=== PATIENT | male | born 1950 | race Caucasian/White ===

== ENCOUNTER 2022-08-09 10:55 | Emergency (ER) | payer MEDICARE, MEDICAID, SELFPAY ==
[2022-08-09 10:56] VITALS: BP 140/106; PULSE 42; RESP 16; TEMP 36.9; O2SAT 96; BMI 22.8
--- NOTE | 2022-08-09 11:17 | HMH.EDSKAF ---
Discharge Plan Disposition Patient Disposition: Home, Self-Care Condition: Fair Prescriptions Prescriptions: New clobetasol 0.05 % cream 1 applic topical BID 7 Days Qty: 500 0RF Rx Instructions: 2 weeks Referrals Follow up/Referrals: Edita Brasher MD [Referring] - 7-14 days ProviderSharita MD [Primary Care Provider] - See instructions Activity Restrictions/Add. Instructions Additional Instructions/Restrictions: Do not take furosemide (lasix) until you see your doctor or the welfare worker again Clinical Impressions Clinical Impression: Bullous pemphigoid Instructions Patient Instructions: DI for Skin Abscess Print Language Print Language: Maltese Discharge ED Provider: Joshua Clements Skin/Abscess/FB HPI General Chief complaint: Skin/Abscess/Foreign Body Stated complaint: Possible Lesion LT leg Time Seen by Provider: 08/09/22 11:17 Mode of Arrival: Wheelchair Source of Information: Patient Limitations: No Limitations Description of Symptoms (Recalled from ER Triage Doc. by RN): 72 yo M presents to ED with c/o pain in left leg. pt recently had blood blister that popped on lower left leg monday. pt reports blister began to form approx 6 days ago. blister has popped and the top layer of skin has come off. History of Present Illness HPI narrative: Patient presents the emergency department with a blister to his left leg. The patient reports that he has had blisters intermittently over the past 6 days. The patient reported blister on his right lower extremity as well that subsequently resolved. complaint: other (Blister) Onset (ago): day(s) (6) Location: LLE and RLE Severity: moderate Quality: burning Consistency: constant Related Data Previous Rx's Medication Instructions Recorded clobetasol 0.05 % topical cream 1 applic topical BID 1 week #500 08/09/22 grams Allergies Allergy/AdvReac Type Severity Reaction Status Date / Time INGREDIENT: NO KNOWN - NO Allergy Mild Uncoded 01/31/17 14:49 KNOWN DRUG ALLERGY No Known Drug Allergies - Allergy Unknown Uncoded 01/31/17 14:49 [facility] Disclaimer: The information contained in this section may have been updated after the patient was seen, as this information can be updated by other users. Social History Smoking Status: Never smoker alcohol intake: former current occupational status: other Travel in the last 8 weeks: None ROS Obtained: Yes Systems reviewed as appropriate & no additional complaints except as documented Musculoskeletal Musculoskeletal: Reports other Comments: Blisters Physical Exam General General appearance: alert and in no apparent distress Eye Eye exam: Present EOMI ENT ENT exam: Present normal external ear exam Respiratory Respiratory exam: Present normal lung sounds bilaterally Cardiovascular Cardiovascular exam: Present regular rate and normal rhythm Extremities Exam Extremities exam: Present other (Ruptured bulla to the left lower extremity with mild surrounding erythema. Healing bullae to the right lower extremity) Neurological Exam Neurological exam: Present alert and oriented X3 Psychiatric Psychiatric exam: Present normal affect and normal mood Skin Skin exam: Present warm and dry Medical Decision Making [place] Inquiry Pt receiving controlled substance: No Vital Signs: 08/09/22 10:56 08/09/22 11:35 08/09/22 12:01 Temperature 98.5 F Temperature Source Oral Pulse Rate 66 66 Pulse Rate [Left] 42 L Respiratory Rate 16 Blood Pressure 119/70 111/72 Blood Pressure [Right Arm] 140/106 H Blood Pressure Mean 87 85 Blood Pressure Mean [Right Arm] 117 Blood Pressure Source Blood Pressure Position 02 Sat by Pulse Oximetry 96 96 96 Oxygen Delivery Method 08/09/22 12:31 08/09/22 13:05 Temperature 98.5 F Temperature Source Oral Pulse Rate 64 64 Pulse Rate [Left] Respiratory Rate 17 Blood Pressure 118/65 118/65 Blood Press
[2022-08-09 11:35] VITALS: BP 119/70; PULSE 66; O2SAT 96
[2022-08-09 11:44] LABS: Basophils % 0.3 % (0.1-2.0); Eosinophils # 0.6 K/mm3 (0.0-0.4); Eosinophils % 13.7 % (0.1-12.0); Hematocrit 33.1 % (42.0-52.0); Hemoglobin 10.5 g/dL (14.1-18.0); Lymphocytes # 0.8 K/mm3 (0.7-4.5); Lymphocytes % 18.4 % (10-50); Mean Corpuscular HGB Conc 31.9 g/dL (31.8-35.4); Mean Corpuscular Hemoglobin 28.6 pg (27.0-31.2); Mean Corpuscular Volume 89.7 fl (80-94); Mean Platelet Volume 7.7 fl (7.4-10.4); Monocytes # 0.6 K/mm3 (0.1-1.0); Neutrophils # 2.5 K/mm3 (1.8-7.8); Neutrophils % 55.6 % (37.0-80.0); Platelet Count 290 K/mm3 (142-424); Red Blood Count 3.69 M/mm3 (4.60-6.20); White Blood Count 4.6 K/mm3 (4.8-10.8)
[2022-08-09 11:58] LABS: INR 1.03 (0.9-1.1); Prothrombin Time 11.1 seconds (10.1-12.5)
--- NOTE | 2022-08-09 12:00 | PC.NURSE ---
ROUNDED ON PATIENT, GIVEN BLANKET, CALL LIGHT WITHIN REACH
[2022-08-09 12:01] VITALS: BP 111/72; PULSE 66; O2SAT 96
[2022-08-09 12:02] LABS: Chloride 96 mmol/L (98-107); Sodium 138 mmol/L (136-145)
[2022-08-09 12:03] LABS: Potassium 4.3 mmoL/L (3.5-5.1)
[2022-08-09 12:06] LABS: Anion Gap 12.3 mEq/L (5-15); Blood Urea Nitrogen 30 mg/dl (9-20); Calcium 8.5 mg/dl (8.4-10.2); Carbon Dioxide 34 mmol/L (22.0-30.0); Creatinine Clearance Estimated 50 mL/min (50-200); Estimated Glomerular Filt Rate 54 ml/min (>60); GFR (African American) 65 ML/MIN (>60); Glucose 92 mg/dl (74-100)
[2022-08-09 12:31] VITALS: BP 118/65; PULSE 64; O2SAT 96
[2022-08-09 13:05] VITALS: BP 118/65; PULSE 64; RESP 17; TEMP 36.9; O2SAT 96
== END 2022-08-09 13:15 | disposition home or self-care (01) ==
PROVIDERS: Emergency Provider Emergency Medicine
DX: L12.0 Bullous pemphigoid (principal); M79.605 Pain in left leg; Z85.46 Personal history of malignant neoplasm of prostate
CPT/HCPCS: 80048; 85025; 85610; 99284